=== PATIENT | female | born 1955 | race Caucasian/White ===

== ENCOUNTER 2018-02-03 23:17 | Inpatient (IN) | payer MEDICARE, OTHER ==
[~2018-02-03] VITALS: Ht 170.2 cm; Wt 81.0 kg
[~2018-02-03 23:17] MED LIST: ACET1TAB12 PO; BENA5TAB2 PO; BUPR150T8 PO; CLOP75TA15 PO; DONE10TA37 PO; METH4TAB3 PO; PRAV40TA3 PO; TRAZ150T78 PO; VERA120T2 PO
[2018-02-03 23:50] LABS: BASOPHILS % (AUTO) 0.7 % (0-1); EOSINOPHILS # (AUTO) 0.1 X10'3 (0-0.9); EOSINOPHILS % (AUTO) 1.9 % (0-6); HEMATOCRIT 38.8 % (35.0-45.0); HEMOGLOBIN 13.5 g/dl (12.0-16.0); LYMPHOCYTES # (AUTO) 1.9 X10'3 (1.1-4.8); LYMPHOCYTES % (AUTO) 30.3 % (21-51); MEAN CORPUSCULAR HGB CONC 34.8 % (33.0-36.5); MEAN CORPUSCULAR VOLUME 89.1 FL (78-98); MEAN PLATELET VOLUME 7.4 FL (7.4-10.4); MONOCYTES # (AUTO) 0.4 X10'3 (0-0.9); MONOCYTES % (AUTO) 5.6 % (2-12); NEUTROPHILS # (AUTO) 3.9 X10'3 (1.8-7.7); NEUTROPHILS % (AUTO) 61.5 % (42-75); PLATELET COUNT 253 X10'3 (140-440); RED BLOOD COUNT 4.36 X10'6 (4.20-5.60); RED CELL DISTRIBUTION WIDTH 13.1 % (11.5-14.5); WHITE BLOOD COUNT 6.3 X10'3 (4.5-11.0)
[2018-02-03 23:58] LABS: CLARITY,URINE CLEAR (Clear); COLOR,URINE YELLOW (Yellow); GLUCOSE, URINE NEGATIVE (Neg); KETONES,URINE NEGATIVE (Neg); LEUKOCYTE ESTERASE ,URINE NEGATIVE (Neg); NITRITES, URINE NEGATIVE (Neg); OCCULT BLOOD,URINE LARGE (Neg); PROTEIN,URINE NEGATIVE (Neg); UROBILINOGEN,URINE 0.2 E.U/dL (0.2-1.0)
[2018-02-04] LABS: PROTHROMBIN TIME 10.4 SECONDS (9.0-12.0)
[2018-02-04 00:03] LABS: UA COLLECTION TYPE CLN CATCH MIDSTREAM
[2018-02-04 00:04] LABS: ALANINE AMINOTRANSFERASE 23 U/L (12-78); ALBUMIN 3.8 G/DL (3.4-5.0); ALBUMIN/GLOBULIN RATIO 1.1 (1.1-1.5); ALKALINE PHOSPHATASE 87 IU/L (46-116); ANION GAP 7 (8-16); ASPARTATE AMINO TRANSFERASE 18 U/L (10-37); BILIRUBIN,TOTAL 0.3 MG/DL (0.1-1.0); BLOOD UREA NITROGEN 14 MG/DL (7-18); BUN/CREATININE RATIO 13.6 (6.6-38.0); CHLORIDE 103 MMOL/L (99-107); CREATININE 1.03 MG/DL (0.40-0.90); GLUCOSE 84 MG/DL (70-104); POTASSIUM 3.7 MMOL/L (3.5-5.1); SODIUM 139 MMOL/L (135-145); TOTAL CARBON DIOXIDE 29.3 MMOL/L (24-32); TOTAL PROTEIN 7.2 G/DL (6.4-8.2); eGFR 54 ML/MIN
[2018-02-04 00:12] LABS: BACTERIA,URINE FEW /HPF (Neg); RBC,URINE 20-50 /HPF (0-2); SQUAMOUS EPITHELIAL CELL,UR FEW /LPF (FEW); WBC CLUMPS,URINE FEW /HPF (NEGATIVE); WBC,URINE 0-4 /HPF (0-4)
[2018-02-04] MEDS ORDERED: CefTRIAXone 2gm/D5W 50ml 50 ML IV ONE (02:15)
[2018-02-04] MEDS ORDERED: ketorolac trometh. 30mg/ml inj. IV ONE (02:20)
[2018-02-04] MEDS ORDERED: diphenhydrAMINE 25mg capsule PO PRN (02:30)
[2018-02-04] MEDS ORDERED: mag hydrox/Alum hydrox/simeth 30ml oral suspension PO PRN (02:30)
[2018-02-04] MEDS ORDERED: metoclopramide 5 mg/ml inj IV PRN (02:30)
[2018-02-04] MEDS ORDERED: diphenhydrAMINE 50 mg/ml inj IV PRN (02:30)
[2018-02-04] MEDS ORDERED: acetaminophen 325mg tablet PO PRN (02:30)
[2018-02-04] MEDS ORDERED: bisacodyl 10mg suppository rectal RC PRN (02:30)
[2018-02-04] MEDS ORDERED: morphine 4 MG/ML inj SYRINge IV PRN ×2 (02:30)
[2018-02-04] MEDS ORDERED: ondansetron/PF 4mg/2ml inj IV PRN (02:30)
[2018-02-04] MEDS ORDERED: magnesium hydroxide 30ml (MOM) UD suspension PO PRN (02:30)
[2018-02-04] MEDS ORDERED: HYDROmorphone inj. 0.5 MG/0.5 ML DISP.SYRIN IV PRN ×2 (02:30)
[2018-02-04 03:08] LABS: C-REACTIVE PROTEIN 0.18 MG/DL (0.0-0.5); MAGNESIUM 1.6 MG/DL (1.5-2.4); PHOSPHORUS 4.1 MG/DL (2.3-4.5)
[2018-02-04] MEDS: dextrose 5%-1/2 normal saline 1,000 ML IV SCH ×2 (03:21→14:26)
[2018-02-04 03:33] LABS: HEMOGLOBIN A1C 6.1 % (4.5-6.2)
[2018-02-04 03:35] VITALS: BP 176/87
[2018-02-04 05:30] VITALS: BP 150/60
[2018-02-04] MEDS: donepezil 5mg tablet PO SCH (08:00)
[2018-02-04] MEDS: acetaminophen w/codeine (30MG) #3 tablet PO SCH ×3 (08:00→20:53)
[2018-02-04] MEDS: CefTRIAXone/D5W-Rocephin 1gm 50 ML IV SCH (08:00)
[2018-02-04] MEDS: docusate sod 100mg capsule PO SCH ×2 (08:01→20:53)
[2018-02-04] MEDS: lisinopril 5mg tablet PO SCH (08:01)
[2018-02-04] MEDS: pantoprazole 40 MG vial IV SCH (08:02)
[2018-02-04] MEDS ORDERED: CLOP75TA15 PO (08:16)
[2018-02-04] MEDS ORDERED: TRAZ-146 PO (08:16)
[2018-02-04] MEDS ORDERED: WELLBUTRIN PO (08:16)
[2018-02-04] MEDS: buPROPion SR 150mg tablet PO SCH (10:27)
[2018-02-04] MEDS: verapamil SR 120mg (sust. release) tab PO SCH (10:28)
[2018-02-04] MEDS: pravastatin 40mg tablet PO SCH (10:28)
[2018-02-04 11:36] VITALS: BP 135/80
[2018-02-04 17:33] VITALS: BP 147/62
[2018-02-04] MEDS ORDERED: traZODone 50mg tablet PO SCH (21:00)
[2018-02-04] MEDS ORDERED: buPROPion SR 150mg tablet PO SCH (21:00)
[2018-02-04] MEDS ORDERED: temazepam 15mg capsule PO PRN (21:00)
[2018-02-04 22:00] VITALS: BP 167/78
[2018-02-05] MEDS: dextrose 5%-1/2 normal saline 1,000 ML IV SCH ×2 (00:23→08:26)
[2018-02-05] MEDS: acetaminophen w/codeine (30MG) #3 tablet PO SCH ×2 (02:00→08:00)
[2018-02-05 05:00] VITALS: BP 156/70
[2018-02-05 05:16] LABS: BASOPHILS % (AUTO) 0.9 % (0-1); EOSINOPHILS # (AUTO) 0.2 X10'3 (0-0.9); EOSINOPHILS % (AUTO) 4.4 % (0-6); LYMPHOCYTES # (AUTO) 1.7 X10'3 (1.1-4.8); LYMPHOCYTES % (AUTO) 36.9 % (21-51); MEAN CORPUSCULAR HGB CONC 34.2 % (33.0-36.5); MEAN CORPUSCULAR VOLUME 90.8 FL (78-98); MEAN PLATELET VOLUME 7.9 FL (7.4-10.4); MONOCYTES # (AUTO) 0.3 X10'3 (0-0.9); MONOCYTES % (AUTO) 6.4 % (2-12); NEUTROPHILS # (AUTO) 2.4 X10'3 (1.8-7.7); NEUTROPHILS % (AUTO) 51.4 % (42-75); PLATELET COUNT 227 X10'3 (140-440); RED BLOOD COUNT 4.18 X10'6 (4.20-5.60); RED CELL DISTRIBUTION WIDTH 12.7 % (11.5-14.5); WHITE BLOOD COUNT 4.6 X10'3 (4.5-11.0)
[2018-02-05 05:33] LABS: ALANINE AMINOTRANSFERASE 20 U/L (12-78); ALBUMIN 3.1 G/DL (3.4-5.0); ALBUMIN/GLOBULIN RATIO 0.9 (1.1-1.5); ALKALINE PHOSPHATASE 78 IU/L (46-116); ANION GAP 8 (8-16); ASPARTATE AMINO TRANSFERASE 15 U/L (10-37); BILIRUBIN,TOTAL 0.3 MG/DL (0.1-1.0); BLOOD UREA NITROGEN 11 MG/DL (7-18); BUN/CREATININE RATIO 12.9 (6.6-38.0); CALCIUM 8.8 MG/DL (8.5-10.1); CHLORIDE 106 MMOL/L (99-107); CHOL/HDL RATIO 4.4 (0.00-4.99); CHOLESTEROL 144 MG/DL (0-200); CREATININE 0.85 MG/DL (0.40-0.90); GLUCOSE 120 MG/DL (70-104); HDL CHOLESTEROL 33 MG/DL (35-60); LDL CHOLESTEROL 77 MG/DL (50-100); POTASSIUM 3.8 MMOL/L (3.5-5.1); SODIUM 143 MMOL/L (135-145); TOTAL CARBON DIOXIDE 28.8 MMOL/L (24-32); TOTAL PROTEIN 6.4 G/DL (6.4-8.2); TRIGLYCERIDES 250 MG/DL (20-135); eGFR 67 ML/MIN
[2018-02-05] MEDS ORDERED: clopidogrel 75mg tablet PO SCH (08:00)
[2018-02-05] MEDS ORDERED: WELLBUTRIN PO SCH (08:00)
[2018-02-05] MEDS: docusate sod 100mg capsule PO SCH (08:16)
[2018-02-05] MEDS: buPROPion SR 150mg tablet PO SCH (08:16)
[2018-02-05] MEDS: verapamil SR 120mg (sust. release) tab PO SCH (08:17)
[2018-02-05] MEDS: pantoprazole 40 MG vial IV SCH (08:18)
[2018-02-05] MEDS: lisinopril 5mg tablet PO SCH (08:18)
[2018-02-05] MEDS: donepezil 5mg tablet PO SCH (08:18)
[2018-02-05] MEDS: CefTRIAXone/D5W-Rocephin 1gm 50 ML IV SCH (08:19)
[2018-02-05] MEDS: pravastatin 40mg tablet PO SCH (08:31)
[2018-02-05 10:30] VITALS: BP 145/65
[2018-02-05] MEDS ORDERED: CEPH250T PO (10:52)
== END 2018-02-05 12:09 | disposition home or self-care (01) | DRG 694 ==
LOC: ER 23:17 → ED HOLD 02-04 02:26 → ORTHO 4S 02-04 03:40
PROVIDERS: ADMIT Family Medicine; ATTEND Family Medicine
DX: N13.2 Hydronephrosis with renal and ureteral calculous obstruction (principal); I10 Essential (primary) hypertension; N12 Tubulo-interstitial nephritis, not specified as acute or chronic; K31.9 Disease of stomach and duodenum, unspecified; N39.0 Urinary tract infection, site not specified; Z79.899 Other long term (current) drug therapy; Z88.1 Allergy status to other antibiotic agents; Z88.2 Allergy status to sulfonamides; Z88.6 Allergy status to analgesic agent; Z87.442 Personal history of urinary calculi
CPT/HCPCS: 36415; 74176; 80053; 80061; 81001; 81003; 83036; 83605; 83615; 83690; 83735; 83880; 84100; 84145; 85025; 85610; 85651; 86140; 87040; 87070; 87088; 99285; C9113; J0696; J1885

== ENCOUNTER 2018-09-25 16:01 | Emergency (ER) | payer MEDICARE, OTHER ==
[~2018-09-25] VITALS: Ht 170.2 cm; Wt 79.5 kg
[~2018-09-25 16:01] MED LIST changes: -ACET1TAB12 PO; -BENA5TAB2 PO; +BENA5TAB7 PO; -BUPR150T8 PO; +CEPH250T PO; -METH4TAB3 PO; +TRAZ-219 PO; -TRAZ150T78 PO; +WELLBUTRIN PO
--- NOTE | 2018-09-25 17:05 | NUR ---
pt states it feels like my heart is pounding, distorted thinking, like im paranoid or something, little lightheadedness. denies dizziness
--- NOTE | 2018-09-25 18:50 | NUR ---
lab drawn with iv start
[2018-09-25 19:30] LABS: BASOPHILS % (AUTO) 0.5 % (0-1); EOSINOPHILS # (AUTO) 0.1 X10'3 (0-0.9); EOSINOPHILS % (AUTO) 1.2 % (0-6); HEMATOCRIT 38.6 % (35.0-45.0); HEMOGLOBIN 13.1 g/dl (12.0-16.0); LYMPHOCYTES # (AUTO) 1.4 X10'3 (1.1-4.8); LYMPHOCYTES % (AUTO) 25.8 % (21-51); MEAN CORPUSCULAR HEMOGLOBIN 30.9 PG (27.0-31.0); MEAN CORPUSCULAR VOLUME 90.9 FL (78-98); MONOCYTES # (AUTO) 0.3 X10'3 (0-0.9); NEUTROPHILS # (AUTO) 3.4 X10'3 (1.8-7.7); NEUTROPHILS % (AUTO) 66.5 % (42-75); PLATELET COUNT 275 X10'3 (140-440); RED BLOOD COUNT 4.25 X10'6 (4.20-5.60); RED CELL DISTRIBUTION WIDTH 12.6 % (11.5-14.5); WHITE BLOOD COUNT 5.3 X10'3 (4.5-11.0)
[2018-09-25 19:42] LABS: ALANINE AMINOTRANSFERASE 32 U/L (12-78); ALBUMIN 3.4 G/DL (3.4-5.0); ALBUMIN/GLOBULIN RATIO 0.9 (1.1-1.5); ALKALINE PHOSPHATASE 93 IU/L (46-116); ANION GAP 10 (8-16); ASPARTATE AMINO TRANSFERASE 21 U/L (10-37); BILIRUBIN,TOTAL 0.2 MG/DL (0.1-1.0); BLOOD UREA NITROGEN 6 MG/DL (7-18); BUN/CREATININE RATIO 8.1 (6.6-38.0); CALCIUM 8.5 MG/DL (8.5-10.1); CHLORIDE 104 MMOL/L (99-107); CREATININE 0.74 MG/DL (0.40-0.90); GLUCOSE 102 MG/DL (70-104); POTASSIUM 3.8 MMOL/L (3.5-5.1); SODIUM 139 MMOL/L (135-145); TOTAL CARBON DIOXIDE 25.4 MMOL/L (24-32); TOTAL PROTEIN 7.1 G/DL (6.4-8.2); eGFR 79 ML/MIN
[2018-09-25 20:14] VITALS: BP 141/102
== END 2018-09-25 20:16 | disposition home or self-care (01) ==
LOC: ER 16:02
DX: R00.2 Palpitations (principal); R06.02 Shortness of breath; R42 Dizziness and giddiness; I25.10 Atherosclerotic heart disease of native coronary artery without angina pectoris; I10 Essential (primary) hypertension; E78.00 Pure hypercholesterolemia, unspecified; Z88.2 Allergy status to sulfonamides; Z88.6 Allergy status to analgesic agent; Z88.5 Allergy status to narcotic agent; Z88.8 Allergy status to other drugs, medicaments and biological substances; Z79.899 Other long term (current) drug therapy; Z87.891 Personal history of nicotine dependence
CPT/HCPCS: 36415; 80053; 84443; 84484; 85025; 93005; 99284